=== PATIENT | male | born 1980 | race American Indian/Alaskan Native ===

== ENCOUNTER 2021-01-28 12:40 | Emergency (ER) | payer SELFPAY ==
[2021-01-28 13:30] VITALS: BP 143/83
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
== END 2021-01-28 15:04 | disposition home or self-care (01) ==
LOC: ED 12:40
DX: S20.211A Contusion of right front wall of thorax, initial encounter (principal); Z79.899 Other long term (current) drug therapy
CPT/HCPCS: 71046; 99283